=== PATIENT | male | born 1990 | race Caucasian/White ===

== ENCOUNTER 2018-11-27 05:54 | Day surgery (SDC) | payer OTHER, BC ==
[2018-11-27] MEDS ORDERED: ROPIVACAINE 0.5 % 30 ML VIAL ×2 (06:52→07:09)
[2018-11-27] MEDS ORDERED: NEOSTIGMINE 3 MG/3 ML SYRINGE (07:00)
[2018-11-27] MEDS ORDERED: MIDAZOLAM 1 MG/ML 2 ML INJ (07:08)
[2018-11-27] MEDS ORDERED: FENTAnyl 50 MCG/ML VIAL ×2 (07:08→07:58)
[2018-11-27] MEDS ORDERED: CEFAZOLIN 1 GM INJ (08:07)
[2018-11-27] MEDS ORDERED: GLYCOPYRROLATE 0.4 MG INJ (08:16)
[2018-11-27] MEDS ORDERED: DEXAMETHASONE 4 MG/ML 5 ML INJ (08:18)
[2018-11-27] MEDS ORDERED: EPHEDrine 25 MG/5 ML SYG (08:21)
[2018-11-27] MEDS ORDERED: ROCURONIUM 50 MG INJ (08:23)
[2018-11-27] MEDS ORDERED: PROPOFOL 40 ML (08:23)
[2018-11-27] MEDS ORDERED: LIDOCAINE 2% (SDV) 5 ML INJ (08:23)
[2018-11-27] MEDS ORDERED: ONDANSETRON 4 MG INJ (08:25)
[2018-11-27] MEDS ORDERED: METOCLOPRAMIDE 10 MG INJ (08:25)
[2018-11-27] MEDS: BACITRACIN/POLYMYXIN 28.35 GM OINT TOP (08:36)
[2018-11-27] MEDS: POLYMYXIN/BACITRACIN 1L IRRIG (08:37)
[2018-11-27] MEDS ORDERED: morphine 2 MG INJ IV (10:30)
[2018-11-27] MEDS ORDERED: KETOROLAC 30 MG INJ IV (10:30)
[2018-11-27] MEDS ORDERED: OXYCODONE/ACETAMINOPHEN (5/325) TAB PO (10:30)
[2018-11-27] MEDS ORDERED: KETOROLAC 15 MG INJ IV (10:30)
[2018-11-27] MEDS ORDERED: HYDROmorphONE 1 MG/5 ML IV SYRINGE IV ×2 (10:30)
[2018-11-27] MEDS ORDERED: FENTAnyl 50 MCG/ML VIAL IV (10:30)
[2018-11-27] MEDS ORDERED: ONDANSETRON 4 MG INJ IV (10:30)
== END 2018-11-27 12:45 | disposition home or self-care (01) ==
LOC: SDS 05:54
DX: M25.871 Other specified joint disorders, right ankle and foot (principal); D16.31 Benign neoplasm of short bones of right lower limb
CPT/HCPCS: 27635; 73610-RT; 82306